=== PATIENT | male | born 1990 | race Caucasian/White ===

== ENCOUNTER 2017-07-12 06:52 | Outpatient (CLI) | payer OTHER ==
[2017-07-12 07:44] LABS: ADD MAN DIFF? NO
[2017-07-12 07:46] LABS: BASO % 1 % (0-3); EOS # 0.1 x10^3/uL (0.0-0.7); EOS % 2 % (0-3); HEMATOCRIT 44.3 % (39.0-53.0); LYMPH # 1.7 x10^3/uL (1.0-4.8); LYMPH % 34 % (24-48); MEAN CORPUSCULAR HEMOGLOBIN 29 pg (25-35); MEAN CORPUSCULAR HGB CONC 34 g/dL (31-37); MEAN CORPUSCULAR VOLUME 84 fL (79-100); MONO # 0.3 x10^3/uL (0.0-1.1); MONO % 7 % (0-9); NEUT # 2.8 x10^3uL (1.8-7.7); NEUT % 57 % (31-73); PLATELET COUNT 270 x10^3/uL (140-400); RED BLOOD COUNT 5.27 x10^6/uL (4.30-5.70); RED CELL DISTRIBUTION WIDTH 13.7 % (11.5-14.5)
[2017-07-12 08:01] LABS: INR 1.1 (0.8-1.1); PROTHROMBIN TIME PATIENT 13.5 SEC (11.7-14.0)
[2017-07-12] MEDS ORDERED: LIDOCAINE WITH 8.4% SOD BICARB 3 ML DISP.SYRIN. (08:11)
[2017-07-12] MEDS: LIDOCAINE WITH 8.4% SOD BICARB 3 ML DISP.SYRIN. IJ (08:28)
[2017-07-12] MEDS ORDERED: oxyCODONE/APAP 5/325 1 TAB TABLET (09:38)
[2017-07-12] MEDS: oxyCODONE/APAP 5/325 1 TAB TABLET PO (09:40)
== END 2017-07-12 11:25 | disposition home or self-care (01) ==
LOC: INTRAD 06:52
DX: D18.01 Hemangioma of skin and subcutaneous tissue (principal); Z79.899 Other long term (current) drug therapy; Z79.01 Long term (current) use of anticoagulants
CPT/HCPCS: 10022; 36415; 76942; 85025; 85610; 87102; 87116; 88184; 88185; 88305